=== PATIENT | female | born 1965 | race American Indian/Alaskan Native ===

== ENCOUNTER 2021-01-07 11:08 | Emergency (ER) | payer SELFPAY ==
[2021-01-07 11:15] VITALS: BP 147/99
--- NOTE | 2021-01-07 11:50 | Event Note ---
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 No fevers chills or sweats but very worried about an infection involved This initial assessment/diagnostic orders/clinical plan/treatment(s) is/are subject to change based on patients health status, clinical progression and re-assessment by fellow clinical providers in the ED. Further treatment and workup at subsequent clinical providers discretion. Patient/guardian urged not to elope from the ED as their condition may be serious if not clinically assessed and managed. Initial orders include: Labs, x-ray
== END 2021-01-07 11:50 | disposition left against medical advice (07) ==
LOC: ED 11:08
DX: M25.531 Pain in right wrist (principal); Z53.21 Procedure and treatment not carried out due to patient leaving prior to being seen by health care provider